=== PATIENT | female | born 2000 ===

== ENCOUNTER → 2021-11-29 | Outpatient (CLI) | payer SELFPAY | END | disposition home or self-care (01) | LOC: LAB SHORT 11:56 → LAB 11:56 | PROVIDERS: Registered Nurse Community Health | DX: Z12.4 Encounter for screening for malignant neoplasm of cervix (principal) | CPT/HCPCS: G0123 ==

== ENCOUNTER → 2022-09-28 | Outpatient (CLI) | payer SELFPAY | END | disposition home or self-care (01) | LOC: LAB 15:17 → LAB SHORT 15:17 | DX: R53.83 Other fatigue (principal) | CPT/HCPCS: 82306; 84443 ==

== ENCOUNTER → 2022-11-19 | Outpatient (CLI) | payer SELFPAY | END | disposition home or self-care (01) | LOC: LAB 11:40 → LAB SHORT 11:40 | DX: E55.9 Vitamin D deficiency, unspecified (principal) | CPT/HCPCS: 82306 ==

== ENCOUNTER → 2023-12-31 | Outpatient (CLI) | payer OTHER ==
[2023-12-31 13:33] LABS: Bacterial Vaginosis PCR Negative (NEGATIVE); Candida Group, PCR NOT DETECTED (NOT DETECT); Candida glabrata-krusei, PCR NOT DETECTED (NOT DETECT)
== END ==
LOC: LAB 09:14 → LAB SHORT 09:14
PROVIDERS: Registered Nurse Community Health
DX: N89.8 Other specified noninflammatory disorders of vagina (principal)
CPT/HCPCS: 87481; 87661; 87801

== ENCOUNTER → 2024-01-15 | Outpatient (CLI) | payer OTHER ==
[2024-01-15 20:05] LABS: Free Thyroxine 0.79 ng/dL (0.70-1.60); Thyroid Stimulating Hormone 3.86 uIU/mL (0.360-4.800); Triiodothyronine, Free 3.17 pg/mL (2.18-3.98)
== END | disposition home or self-care (01) ==
LOC: LAB SHORT 18:49 → LAB 18:49
PROVIDERS: Registered Nurse Community Health
DX: R63.5 Abnormal weight gain (principal)
CPT/HCPCS: 83036; 84439; 84443; 84481

== ENCOUNTER → 2024-01-22 | Outpatient (CLI) | payer OTHER ==
[2024-01-23 17:14] LABS: THYROID PEROXIDASE (TPO) AB 0.5 IU/mL (0.0-9.0)
== END | disposition home or self-care (01) ==
LOC: LAB 13:01 → LAB SHORT 13:01
PROVIDERS: Registered Nurse Community Health
DX: R63.5 Abnormal weight gain (principal)
CPT/HCPCS: 86376